=== PATIENT | male | born 1965 | race Caucasian/White ===

== ENCOUNTER 2025-06-13 10:04 | Observation (INO) ==
[2025-06-13] MEDS: ONDANSETRON INJ 2 MG/ML 2 ML VIAL IV STA (10:38)
[2025-06-13] MEDS: MoRPHine SULFATE 10 MG/ML CARP/VIAL IV STA (10:38)
[2025-06-13] MEDS: SODIUM CHLORIDE 0.9% 1,000 ML IV SCH ×2 (10:38→14:46)
--- NOTE | 2025-06-13 10:39 | Emergency Department Note ---
History of Present Illness General Chief complaint: Abdominal Pain Stated complaint: ABD PAIN SEVERE, POSSIBLE BOWEL BLOCKAGE Time Seen by Provider: 06/13/25 10:20 History of Present Illness Maximum Pain Intensity: 9 Patient is a 59-year-old male with past medical history significant for BPH, hypertension, asthma, and history of exploratory laparotomy, who presents to the emergency department for evaluation of abdominal pain, nausea and vomiting x 4 hours. Patient states that he woke at around 0600 today with a "gas-like" pain in his mid abdomen. He was nauseous. His symptoms progressively worsened as the morning went on. He vomited once around 0930, but it was a small amount. He has tried sipping on Gatorade this morning, but has not had anything to eat. He did not take any medication for pain which he currently rates a 9/10. He reports a history of an exploratory laparotomy for trauma many years ago. He had a subsequent bowel obstruction a couple of years ago that cleared on its own per the patient, he was taken care of at [facility] at that time. He started vomiting in triage when they tried to check his oral temperature. It was a large volume per nursing staff. No chato blood. He had a normal bowel movement yesterday afternoon. He is not passing gas at this time. No urinary symptoms. Denies any chest pain or shortness of breath. He states that this does feel similar to the bowel obstruction he had a couple of years ago. Home Medications Medication Instructions Recorded Confirmed Type Heartburn 0 mg PO DAILY PRN Heartburn 06/13/25 06/13/25 History albuterol sulfate 90 mcg/actuation 2 inh inhalation Q4H PRN cough/sob 06/13/25 06/13/25 History aerosol inhaler ibuprofen 0 mg PO DAILY PRN Pain 06/13/25 06/13/25 History lisinopril 1 tab PO DAILY 06/13/25 06/13/25 History tamsulosin 0.4 mg capsule 0.4 mg PO DAILY 06/13/25 06/13/25 History Allergies Allergy/AdvReac Type Severity Reaction Status Date / Time No Known Allergies Allergy Verified 06/13/25 10:32 Past Med/Surg History Problem List (Updated 06/13/25 @ 17:42 by Alana Ferguson) Hypertension Small bowel obstruction (Acute) Ventral hernia (Acute) Medical History Asthma BPH (benign prostatic hyperplasia) Hypertension Surgical History History of knee surgery H/O exploratory laparotomy Social History Smoking Status: Never smoker Second Hand Exposure: No; Do You Dip or Chew Tobacco: No; Tobacco Cessation Education Requested by Patient: No Hx Alcohol Use: Yes Alcohol type: beer Hx Substance Use: No Preferred Language: Danish Communication Ability: Effective Hydro Excavation Operator Required: No Beliefs That Will Affect Care: None Current Living Situation: Spouse Other Information That Helps Us Care for You: No Feels Safe at Home: Yes Safety Concerns: Feels Safe At This Time Assistive Devices: Glasses Review of Systems A total of 10 systems reviewed and were otherwise negative Physical Exam Vital Signs Vital Signs - 24 hr 06/13/25 10:13 06/13/25 10:28 06/13/25 10:30 Temperature 36.4 C L Temperature Source Oral Pulse Rate 66 76 Pulse Rate [Right Finger] 67 Pulse Rhythm [Right Finger] Regular Pulse Strength [Right Finger] Normal Respiratory Rate 22 38 H Respiratory Effort / Characteristics Non-Labored Spontaneous Non-Labored Respiratory Depth Normal Normal Respiratory Pattern Regular Blood Pressure 143/89 H Blood Pressure [Right Arm] Blood Pressure Mean 107 Blood Pressure Mean [Right Arm] Blood Pressure Position [Right Arm] Pulse Oximetry 95 Oxygen Delivery Method Room Air Sepsis Recent Fever Within 48 Hours No Sepsis New/Unexplained Change in Mental Status No Sepsis Action Taken by Nursing No Action Required 06/13/25 10:44 06/13/25 12:51 Temperature Temperature Source Pulse Rate Pulse Rate [Right Finger] 63 Pulse Rhythm [Right Finger] Regular Pulse Strength [Right Finger] Normal Respiratory Rate 18 Respiratory Effort / Characteristics Non-Labored Respiratory Depth Normal Respiratory Pattern Regular Blood Pressure Blood Pressure [Right Arm] 128/82 Blood Pressure Mean Blood Pressure Mean [Right Arm] 97 Blood Pressure Position [Right Arm] Lying Pulse Oximetry 96 97 Oxygen Delivery Method Room Air Room Air Sepsis Recent Fever Within 48 Hours Sepsis New/Unexplained Change in Mental Status Sepsis Action Taken by Nursing CONSTITUTIONAL: Patient is a tremulous, uncomfortable 59-year-old male who is awake and alert and laying semiupright on the gurney in moderate distress due to his stated complaint. EYES: Pupils equal, round, reactive to light and accommodation. EOMs intact without nystagmus. Sclera are anicteric. ENT: Tympanic membranes intact, with normal landmarks. External canals are clear. Oral and nasopharynx are clear. Mucous membranes are moist, no lesions, tongue and gums appear normal. CARDIOVASCULAR: Regular rate and rhythm. Peripheral pulses easily palpable. RESPIRATORY: Breath sounds equal and clear to auscultation. ABDOMEN: Well-healed midline surgical scar, from xiphoid to suprapubic region. Bowel sounds are hypoactive x 4 quadrants. The abdomen is tympanic to percussion throughout, moderately distended, and tender to palpation throughout the entire abdomen. There is voluntary guarding throughout. INTEGUMENTARY: No lesions or rash, normal skin turgor. LYMPH: No lymphadenopathy. Course Course The patient was seen and assessed as above. External medical records are viewed. He presents to the emergency department for evaluation of acute abdominal pain, nausea, and vomiting with a history of a small bowel obstruction. IV lock was initiated. Laboratory studies collected including CBC with differential, CMP and lipase. He was hydrated with normal saline solution and medicated with morphine 6 mg and Zofran 4 mg IV. He was observed on the cardiac cath lab radiology technologist. Acute abdominal series and CT scan of the abdomen and pelvis with IV contrast were obtained. Diagnostics, as interpreted by me: Laboratory studies: Markedly elevated white count at 21,000 with left shift noted. No anemia. No significant electrolyte imbalance, no OREN. Nonfasting glucose is elevated. No transaminitis. Lipase is normal. Cardiac monitoring: An order was placed for continuous cardiac monitoring. The monitor shows a NSR at a rate of 65 per my interpretation. Imaging studies: Acute abdominal series notes the chest is clear. Nonobstructive abdominal bowel gas pattern. CT scan of the abdomen and pelvis with IV contrast is concerning for a small bowel obstruction with a transition zone just below a small ventral hernia, attaining a small bowel loop. The patient was reassessed. Laboratory studies and CT scan findings were reviewed with him. is at the bedside. Patient looks markedly improved, he reports he is no longer nauseous, and pain is almost completely resolved. Given findings, I did recommend consultation with general surgery and he was agreeable. General surgery CAMILO's, Cydney Cleveland PA-C/TOBI Perez. Please refer to their surgical consultation. They were reassured that they were able to reduce the patient's hernia in the ED, but still recommended observation/admission to ensure resolution of symptoms, and to follow labs. Patient was agreeable to this. assurance senior manager insurance was made aware of general surgery plans. Chronic conditions affecting care: Hypertension Differential diagnosis: GERD, gastritis, esophagitis, peptic ulcer disease, biliary pathology, bowel obstruction, perforation, abscess, mass or malignancy, infectious/inflammatory colitis/enteritis, foodborne illness, among others. Administered Medications Sodium Chloride (Nss) 1,000 mls @ 100 mls/hr IV .Q10H CHANTEL Stop: 06/16/25 14:19 Last Admin: 06/13/25 14:46 Dose: 100 mls/hr Documented By: Discontinued Medications Sodium Chloride (Nss) 1,000 mls @ 999 mls/hr IV .Q1H1M CHANTEL Stop: 06/13/25 11:32 Last Infusion: 06/13/25 13:07 Dose: Infused Documented By: Admin: 06/13/25 10:38 Dose: 999 mls/hr Documented By: YULISA Ioversol (Optiray 320 100ml) 94 ml IV ONCE ONE Stop: 06/13/25 11:48 Last Admin: 06/13/25 11:47 Dose: 94 ml Documented By: LOU Morphine Sulfate (Morphine Sulfate 10 Mg/Ml Carp/Vial) 6 mg IV NOW STA Stop: 06/13/25 10:33 Last Admin: 06/13/25 10:38 Dose: 6 mg Documented By: YULISA Ondansetron HCl (Ondansetron Inj 2 Mg/Ml 2 Ml Vial) 4 mg IV NOW STA Stop: 06/13/25 10:33 Last Admin: 06/13/25 10:38 Dose: 4 mg Documented By: YULISA Medical Decision Making Differential Diagnosis See ED course. Medical Records Attestation: I reviewed the patient's medical records. Home Medications Current Medication List: was personally reviewed by me Laboratory Data Attestation: I reviewed the patient's lab results. 06/13/25 10:26 06/13/25 10:26 Lab Results 06/13/25 Range/Units 10:26 WBC 20.97 H (4.8-10.8) K/ul RBC 5.33 (4.70-6.10) M/uL Hgb 17.3 (14.0-18.0) g/dl Hct 49.5 (42.0-52.0) % MCV 92.9 (80.0-100.0) fL MCH 32.5 (25.0-34.0) pg MCHC 34.9 (32.0-36.0) g/dL RDW Std Deviation 41.4 (36.4-46.3) fL RDW Coeff of Rosa Maria 12.1 (11.5-14.5) % Plt Count 330 (130-400) K/uL MPV 9.9 (9.4-12.4) fL Immature Gran % (Auto) 0.4 % Neut % (Auto) 80.9 % Lymph % (Auto) 12.4 % [place] % (Auto) 4.6 % Eos % (Auto) 1.1 % Baso % (Auto) 0.6 % Neut # (Auto) 16.94 H (1.40-6.50) K/uL Lymph # (Auto) 2.61 (1.20-3.40) K/uL [place] # (Auto) 0.96 H (0.11-0.59) K/uL Eos # (Auto) 0.24 (0.00-0.50) K/uL Baso # (Auto) 0.13 (0.00-0.20) K/uL Immature Gran # (Auto) 0.09 (0.01-0.20) K/uL Sodium 138 (136-145) mmol/L Potassium 4.3 (3.5-5.1) mmol/L Chloride 96 L (98-107) mmol/L Carbon Dioxide 27 (21-32) mmol/L Anion Gap 15 H (3-11) BUN 17 (6-23) mg/dl Creatinine 1.28 (0.6-1.4) mg/dl Est Cr Clr Drug Dosing Not Reportable eGFR 65.28 BUN/Creatinine Ratio 13.3 (10-20) Glucose 174 H (70-99(Fasting)) mg/dl Calcium 11.5 H (8.6-10.3) mg/dl Total Bilirubin 0.9 (0.2-1.0) mg/dl AST 20 (13-39) U/L ALT 14 (7-52) U/L Alkaline Phosphatase 66 (34-104) U/L Total Protein 9.7 H (6.0-8.3) gm/dl Albumin 5.0 (3.4-5.0) gm/dl Globulin 4.7 H (2.5-4.0) gm/dl Albumin/Globulin Ratio 1.1 (0.9-2) Lipase 37 (11-82) U/L Imaging Data Attestation: I personally reviewed and interpreted this imaging study as follows: Radiologist's Impression: Abdomen/Pelvis CT 06/13/25 10:[address] WITH IV CONTRAST CT DOSE: 1059.03 mGy.cm HISTORY: EVAL SBO TECHNIQUE: Multiaxial CT images of the abdomen and pelvis were performed following the IV administration of 90 cc of Optiray, A dose lowering technique was utilized adhering to the principles of ALARA. COMPARISON STUDY: None FINDINGS: ABDOMEN: There are a few small splenic cysts. Liver, gallbladder, spleen, pancreas, and adrenal glands are otherwise unremarkable. Kidneys show no hydronephrosis or calculi. There are moderate atherosclerotic calcifications. No abdominal aortic aneurysm. Pelvis: Prostate is minimally enlarged. Urinary bladder is nondistended. There is a small ventral hernia just above the umbilicus which contains small bowel. The proximal to mid small bowel is dilated up to 4 cm diameter. Mid to distal small bowel is nondilated. Transition zone is at the mid small bowel anterior pelvis just below the ventral hernia series 3 image 242 and series 300 image 22. The stomach is distended with retained fluid. The colon is nondilated. No free fluid, free air, or abscess. No enlarged adenopathy. Osseous structures: No acute osseous findings seen. There is degenerative disc disease at the lower lumbar spine. IMPRESSION: Small bowel obstruction with transition zone just below a small ventral hernia which contains a small bowel loop. ACT 112: Negative or not required by law. The above report was generated using voice recognition software. It may contain grammatical, syntax or spelling errors. Electronically signed by: Tate Roth M.D. 06/13/2025 12:10 PM Chest/Abdomen X-ray 06/13/25 10:32 PA CHEST WITH ABDOMINAL SERIES CLINICAL HISTORY: Generalized abdominal pain. Vomiting FINDINGS: A PA chest radiograph is compared to study dated 03/06/2016. The cardiomediastinal silhouette is unremarkable noting atherosclerotic calcification of the thoracic aorta. There is mild chronic elevation of left hemidiaphragm. The lungs and pleural spaces are clear. No pneumothorax is seen. The bony thorax is grossly intact. A 2.5 cm right paraspinous density was not clearly seen in 2016 and appears calcified. Supine and erect abdominal radiographs are obtained. No prior studies are available for comparison at the time of dictation. There is a nonobstructed abdominal bowel gas pattern. Moderate fecal retention is seen throughout the colon. No evidence of intraperitoneal free air is seen. There are no abnormal abdominal calcifications. There are numerous pelvic phleboliths. The lumbosacral spine and bony pelvis appear intact. There is mild thoracolumbar scoliosis. IMPRESSION: 1. No active disease in the chest. 2. Nonobstructed abdominal bowel gas pattern. 3. A 2.5 cm calcified appearing right paraspinous density in the mid thoracic region was not clearly seen on the 2016 examination. This may represent osteophytosis. Correlation with a chest CT is recommended for further assessment. ACT 112: Negative or not required by law. Electronically signed by: Juventino Jewell M.D. 06/13/2025 11:45 AM MDM Narrative See ED course. Impression & Plan Small bowel obstruction, Ventral hernia Discharge Plan Visit Data Chief Complaint: Abdominal Pain Stated Complaint: ABD PAIN SEVERE, POSSIBLE BOWEL BLOCKAGE ED Provider: Duane Shaw ED Midlevel Provider: Alana Ferguson Discharge Problem: Small bowel obstruction, Ventral hernia Patient Disposition: Admitted As Inpatient Condition: Fair Discharge Instructions Interventions: ED Discharge Assessment Last Done: 06/13/25 14:06
[2025-06-13 11:00] LABS: Hematocrit (blood only) 49.5 % (42.0-52.0); Hemoglobin 17.3 g/dl (14.0-18.0); Immature Granulocytes # (auto) 0.09 K/uL (0.01-0.20); Immature Granulocytes % (auto) 0.4 %; Mean Corpuscular Hemoglobin 32.5 pg (25.0-34.0); Mean Corpuscular Volume 92.9 fL (80.0-100.0); Platelet Count 330 K/uL (130-400); RDW Standard Deviation 41.4 fL (36.4-46.3); Red Blood Count 5.33 M/uL (4.70-6.10); White Blood Count 20.97 K/ul (4.8-10.8)
[2025-06-13 11:22] LABS: Alanine Aminotransferase 14 U/L (7-52); Albumin Globulin Ratio 1.1 (0.9-2); Alkaline Phosphatase 66 U/L (34-104); Anion Gap 15 (3-11); Bilirubin,Total 0.9 mg/dl (0.2-1.0); Blood Urea Nitrogen 17 mg/dl (6-23); Calcium 11.5 mg/dl (8.6-10.3); Carbon Dioxide 27 mmol/L (21-32); Chloride 96 mmol/L (98-107); Globulin 4.7 gm/dl (2.5-4.0); Glucose 174 mg/dl (70-99(Fasting)); Lipase 37 U/L (11-82); Potassium 4.3 mmol/L (3.5-5.1); Sodium 138 mmol/L (136-145); Total Protein 9.7 gm/dl (6.0-8.3)
[2025-06-13] MEDS: OPTIRAY 320 100ml IV ONE (11:47)
--- NOTE | 2025-06-13 11:48 | XRay Report ---
PA CHEST WITH ABDOMINAL SERIES CLINICAL HISTORY: Generalized abdominal pain. Vomiting FINDINGS: A PA chest radiograph is compared to study dated 03/06/2016. The cardiomediastinal silhouette is unrema rkable noting atherosclerotic calcification of the thoracic aorta. There is mild chronic elevation of left hemidiaphragm. The lungs and pleural spaces are clear. No pneumothorax is seen. The bony thorax is grossly intact. A 2.5 cm right paraspinous density was not clearly seen in 2016 and appears calci fied. Supine and erect abdominal radiographs are obtained. No prior studies are available for comparison at the time of dictation. There is a nonobstructed abdominal bowel gas pattern. Moderate fecal retentio n is seen throughout the colon. No evidence of intraperitoneal free air is seen. There are no abnorma l abdominal calcifications. There are numerous pelvic phleboliths. The lumbosacral spine and bony pel vis appear intact. There is mild thoracolumbar scoliosis. IMPRESSION: 1. No active disease in the chest. 2. Nonobstructed abdominal bowel gas pattern. 3. A 2.5 cm calcified appearing right paraspinous density in the mid thoracic region was not clearly seen on the 2016 examination. This may represent osteophytosis. Correlation with a chest CT is recomm ended for further assessment. ACT 112: Negative or not required by law. Electronically signed by: Juventino Jewell M.D. 06/13/2025 11:45 AM
--- NOTE | 2025-06-13 12:11 | CT Scan Report ---
ABDOMEN AND PELVIS CT WITH IV CONTRAST CT DOSE: 1059.03 mGy.cm HISTORY: EVAL SBO TECHNIQUE: Multiaxial CT images of the abdomen and pelvis were performed following the IV administrat ion of 90 cc of Optiray, A dose lowering technique was utilized adhering to the principles of ALARA. COMPARISON STUDY: None FINDINGS: ABDOMEN: There are a few small splenic cysts. Liver, gallbladder, spleen, pancreas, and adrenal gland s are otherwise unremarkable. Kidneys show no hydronephrosis or calculi. There are moderate atheroscl erotic calcifications. No abdominal aortic aneurysm. Pelvis: Prostate is minimally enlarged. Urinary bladder is nondistended. There is a small ventral her jay just above the umbilicus which contains small bowel. The proximal to mid small bowel is dilated u p to 4 cm diameter. Mid to distal small bowel is nondilated. Transition zone is at the mid small brock l anterior pelvis just below the ventral hernia series 3 image 242 and series 300 image 22. The stoma ch is distended with retained fluid. The colon is nondilated. No free fluid, free air, or abscess. No enlarged adenopathy. Osseous structures: No acute osseous findings seen. There is degenerative disc disease at the lower l umbar spine. IMPRESSION: Small bowel obstruction with transition zone just below a small ventral hernia which cont ains a small bowel loop. ACT 112: Negative or not required by law. The above report was generated using voice recognition software. It may contain grammatical, syntax o r spelling errors. Electronically signed by: Tate Roth M.D. 06/13/2025 12:10 PM
[2025-06-13] MEDS ORDERED: MoRPHine SULFATE 4 MG/ML 1 ML CARP\\VIAL IV PRN (12:57)
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
[2025-06-13] MEDS ORDERED: ACETAMINOPHEN 325 MG TAB PO PRN (14:20)
[2025-06-14 07:36] LABS: Anion Gap 7.0 (3-11); Blood Urea Nitrogen 16.0 mg/dl (6-23); Calcium 8.7 mg/dl (8.6-10.3); Carbon Dioxide 25.0 mmol/L (21-32); Chloride 105.0 mmol/L (98-107); Creatinine Clr Calc Pharmacy 95.6 ml/min; Glucose 79.0 mg/dl (70-99(Fasting)); Potassium 4.2 mmol/L (3.5-5.1); Sodium 137.0 mmol/L (136-145)
--- NOTE | 2025-06-14 07:48 | Surgery Progress Note ---
Date of Service June 14, 2025 Assessment & Plan (1) Ventral hernia: Plan: Patient here w/ SBO 2/2 ventral hernia Blood work pending this AM [place] reduced in the ER yesterday during our evaluation and pt was feeling much better. we admitted him for overnight observation. unfortunately overnight his pain began to return and is associated with burping. His abdominal binder and kerlex gauze came off due to him incidentally removing it at night while he sleeps. His abdomen is soft, but tender in the area where hernia is located. I again can palpate the defect Given overnight pt did not stay pain free and he has symptoms including lack of bowel function and + burping we discussed entertaining surgical intervention at this point for ventral hernia repair. he is agreeable If + vomiting today prior to OR can consider NGT placement but okay to hold off for now Dr. Taylor will be by to obtain consent (2) Small bowel obstruction: Admission and Anticipated Discharge Date Admission Date: June 13, 2025 Supervising Physician Co-Signing Physician Notes While he states the hernia has seemed to stay reduced, he did develop increased pain and significant tenderness at the area below the epigastric hernia. On imaging, there appears to be an area suspicious for a tiny Richters hernia at this location at the umbilicus. Today, planning for surgery. Diagnostic laparoscopy for possible BERENICE and other necessary interventions, bowel exploration, open primary ventral hernia repair of these two hernias. It has been explained to him that a mesh will not be used at this time and this is not addressing the full incision, just the area that appears to have been obstructed on admission and the tiny area that appears to have pinched off bowel just below this. If he has recurrence and an elective setting is possible, would advise a more formal repair at that time to address the full incision and possible mesh. The details of all of this have been explained to him including the risks, benefits and alternatives. He expressed understanding of this explanation and consent has been obtained. Subjective Patient reports worsening abdominal pain overnight associated with some burping. No bowel function noted. Feels like the pain is returning compared to when he was feeling better yesterday. Physical Exam Physical Exam: trying to rest, but awake/alert, no distress Gastrointestinal (Abdomen): Inspection/Auscultation: + abdominal surgical scar (large midline scar); abdomen not distended + tenderness to palpation in the supra-u mbilical region and off to the left midline abdomen. I can palpate the defect Results & Data Vital Signs (Past 12 Hours) Vital Signs Temp Pulse Resp BP Pulse Ox O2 Del Method 06/14/25 07:03 98.2 F 66 16 149/78 H 96 Room Air PG Care Time/CCT Total # of Minutes Spent Total Time Spent with Patient: Total time spent is greater than 50% in coordination of care (as documented) at patient's floor/unit and/or counseling patient: Coding Level of Care Code 90701 SUB INP/OBS CARE 12/23MIN Diagnoses Ventral hernia K43.9 Small bowel obstruction K56.609
[2025-06-14 07:50] LABS: Hematocrit (blood only) 40.3 % (42.0-52.0); Hemoglobin 13.6 g/dl (14.0-18.0); Immature Granulocytes # (auto) 0.05 K/uL (0.01-0.20); Immature Granulocytes % (auto) 0.5 %; Mean Corpuscular Hemoglobin 31.7 pg (25.0-34.0); Mean Corpuscular Volume 93.9 fL (80.0-100.0); Platelet Count 204 K/uL (130-400); RDW Standard Deviation 42.6 fL (36.4-46.3); Red Blood Count 4.29 M/uL (4.70-6.10); White Blood Count 10.77 K/ul (4.8-10.8)
[2025-06-14] MEDS: ONDANSETRON INJ 2 MG/ML 2 ML VIAL IV PRN (08:54)
[2025-06-14] MEDS: MoRPHine SULFATE 2 MG/ML CARP IV PRN (08:57)
[2025-06-14] MEDS ORDERED: DEXAMETHASONE SOD INJ 4 MG/ML VIAL ONE (10:43)
[2025-06-14] MEDS ORDERED: MIDAZOLAM HCL 1 MG/ML 2ML VIAL ONE (10:43)
[2025-06-14] MEDS ORDERED: ONDANSETRON INJ 2 MG/ML 2 ML VIAL ONE (10:43)
[2025-06-14] MEDS ORDERED: PROPOFOL IV EMULSION 10 MG/ML 20 ML VIAL IV ONE (10:43)
[2025-06-14] MEDS ORDERED: LIDOCAINE 2% 2 ML VIAL/AMP(20MG/ML) INFIL ONE (10:43)
[2025-06-14] MEDS ORDERED: ROCURONIUM BROMIDE 10 MG/ML 5 ML VIAL IV ONE ×2 (10:44)
--- NOTE | 2025-06-14 12:16 | Anesthesiology Consultation ---
Date of Service June 14, 2025 Assessment & Plan Chart Review Chart Review: Acceptable Risk for Surgery Consults Requested none History Surgery Operation Date: 06/14/25 08:00 Proposed Procedures p Open Ventral Hernia Repair - Didier Taylor DO s Diagnostic Laparoscopy - Didier Taylor DO Height/Weight Height: 5 ft 10 in Weight: 77.6 kg Allergies Allergy/AdvReac Type Severity Reaction Status Date / Time No Known Allergies Allergy Verified 06/13/25 10:32 Medications Home Medications Medication Instructions Recorded Confirmed Last Taken Heartburn 0 mg PO DAILY PRN Heartburn 06/13/25 06/13/25 Unknown albuterol sulfate 90 mcg/actuation 2 inh inhalation Q4H PRN cough/sob 06/13/25 06/13/25 Unknown aerosol inhaler ibuprofen 0 mg PO DAILY PRN Pain 06/13/25 06/13/25 Unknown lisinopril 1 tab PO DAILY 06/13/25 06/13/25 Unknown tamsulosin 0.4 mg capsule 0.4 mg PO DAILY 06/13/25 06/13/25 Unknown Active Medications Generic Name Dose Route Start Last Admin Trade Name Freq PRN Reason Stop Dose Admin Sodium Chloride 1,000 mls @ 100 mls/hr 06/13/25 14:20 06/14/25 10:43 Nss IV 06/16/25 14:19 100 mls/hr .Q10H CHANTEL Administration Morphine Sulfate 2 mg 06/13/25 14:20 06/14/25 08:57 Morphine Sulfate 2 Mg/Ml Carp IV 06/27/25 14:19 2 mg Q4H PRN Administration Moderate Pain (Scale 4, 5, 6) Ondansetron HCl 4 mg 06/13/25 14:20 06/14/25 08:54 Ondansetron Inj 2 Mg/Ml 2 Ml Vial IV 07/13/25 14:19 4 mg Q6H PRN Administration Nausea And Vomiting NPO Date Last Intake of Fluids: 06/13/25 Time Last Intake of Fluids: 21:00 Date Last Intake of Solids: 06/12/25 Time Last Intake of Solids: 18:30 Past Medical History Medical History Asthma BPH (benign prostatic hyperplasia) Hypertension Past Surgical History Surgical History History of knee surgery H/O exploratory laparotomy Social History Smoking Status: Never smoker Do You Dip or Chew Tobacco: No Hx Alcohol Use: Yes Alcohol type: beer alcohol intake frequency: 3 or more drinks per day Hx Substance Use: No Physical Exam Vital Signs Last Vital Signs Temp 37 C 06/14/25 11:25 Pulse 86 06/14/25 11:25 Resp 18 06/14/25 11:25 BP 159/98 H 06/14/25 11:25 Pulse Ox 97 06/14/25 11:25 O2 Del Method Room Air 06/14/25 11:25 Testing Laboratory Results 06/14/25 05:53 06/14/25 05:53
[2025-06-14] MEDS ORDERED: PROMETHAZINE HCL 6.25 MG in SODIUM CHLORIDE 0.9% 50 ML IV PRN (12:17)
[2025-06-14] MEDS ORDERED: ONDANSETRON INJ 2 MG/ML 2 ML VIAL IV PRN (12:17)
[2025-06-14] MEDS ORDERED: ATROPINE SULFATE 0.1 MG/ML 10ML SYR IV PRN (12:17)
[2025-06-14] MEDS ORDERED: HYDROmorphone INJ 2 MG/ML SYR/VIAL IV PRN (12:17)
[2025-06-14] MEDS: PIPERACILLIN/TAZOBACTAM 4.5 GM/100 ML BAG IV ONE (12:17)
[2025-06-14] MEDS ORDERED: METOPROLOL TARTRATE 1 MG/ML VIAL IV ONE ×2 (12:52)
[2025-06-14] MEDS ORDERED: SUGAMMADEX SODIUM 200 MG/2 ML VIAL IV ONE (13:01)
[2025-06-14] MEDS ORDERED: ePHEDrine sulfate 50 MG/5 ML SYR ONE (13:05)
[2025-06-14] MEDS ORDERED: GLYCOPYRROLATE 0.2 MG/ML VIAL ONE (13:06)
[2025-06-14] MEDS ORDERED: PHENYLEPHRINE 100MCG/ML 5ML SYR ONE (13:07)
[2025-06-14] MEDS: BUPIVACAINE/EPINEPHRINE 0.5% MPF 1:200,000 30 ML VIAL ONE (14:05)
[2025-06-14] MEDS: BACITRACIN OINT 14 GM TUBE ONE (14:16)
--- NOTE | 2025-06-14 14:21 | Operative Report ---
PG Post Operative Report Pre & Post Diagnosis Operation Date: 06/14/25 08:00 Pre-Op Diagnosis: Small Bowel Obstruction, Ventral Hernia Post-Op Diagnosis: Small Bowel Obstruction, Ventral Hernia I identified the patient and participated in the time-out.: Yes Procedure Operation Date: 06/14/25 08:00 Actual Procedures p Open Ventral Hernia Repair(Not Applicable) - Didier Taylor DO s Diagnostic Laparoscopy(Not Applicable) - Didier Taylor DO Surgeon Didier Taylor DO Tile Grinder MARLENY Schuster Estimated Blood Loss 3 Findings See Below Extensive adhesions of the anterior abdominal wall containing bowel and omentum. Tiny umbilical hernia containing fat. Epigastric/hernia right upper umbilicus containing nonobstructed appearing bowel and fat. Specimens None Anesthesia Type General Complications No immediate complications Indications Consistent pain at her site noted. Reduced with ongoing obstructive like symptoms. CT imaging revealing potential Pickett's hernia at the time of an umbilical hernia site and transition zone at this location. Description of Procedure The patient was brought back to the operating room placed on the operating table supine position. He was connected to cardiac and oxygen monitoring, supplemental O2 was provided and SCDs were applied to bilateral lower extremities. SCDs were applied to bilateral lower extremities. The patient was administered general anesthesia and a secure airway was established. The abdomen was prepped and draped in typical sterile fashion a timeout was conducte d. Local anesthetic was used anesthetize skin and subcutaneous tissues where the incisions and wound decisions were made with a 15 blade at the midline incision and an 11 blade at the laparoscopic incisions. Intra-abdominal access was gained at the left upper quadrant using a Veress needle and this was confirmed with a saline drop test. CO2 was the patient was initiated and pneumoperitoneum was established with goal pressure 15 mmHg. Once this pressure was reached, a 5 mm trocar was inserted using direct visualization with a 5 mm laparoscope with the view port. 2 additional 5 mm trocars were inserted along the left abdomen. Extensive adhesions were noted centrally behind the prior midline laparotomy incision. Multiple bowel loops and fat were released. Adhesions were lysed from this area to expose a fat-containing tiny umbilical hernia as well as most of the epigastric hernia. CO2 insufflation was discontinued and excess pneumoperitoneum was evacuated. An incision was made around the. Aspect of the umbilicus and above using the prior midline incision scar to expose the epigastric hernia. Lysis of adhesions was undertaken to clear at a good area around the fascia. The umbilical stalk was dissected and lifted away to expose the tiny umbilical hernia which should still contain some fat. Adhesions along the bridging fascia between the 2 hernias were cleared. Small amount of bleeding was controlled with gentle cautery. Care was taken throughout the process to avoid injury to the bowel. No obvious bowel injury was noted during the lysis of adhesions. ED fascia at the epigastric incision was closed with a running 1-0 PDS suture. At that time the umbilical hernia was then also closed with a 1-0 PDS suture. The wound was irrigated and dried. Additional local anesthetic was used to anesthetize the subcutaneous tissues in the midline incision. The skin was approximated using sagar at all incisions. The abdomen was wiped clean with a saline soaked lap pad and dried. The incisions were further dressed with bacitracin, Telfa and gauze secured in place with tape. The patient tolerated the procedure well. He was awakened from anesthesia, the secure airway was removed and he was transferred to recovery in stable condition. I attest to the content of the Intraoperative Record and any orders documented therein. Any exceptions are noted below.
--- NOTE | 2025-06-14 15:04 | Anesthesiology Progress Note ---
Date of Service June 14, 2025 Anesthesia Post Procedure Vital Signs Vital Signs: Temp Pulse Pulse Resp BP Pulse Ox O2 Del Method 06/14/25 14:50 84 18 135/86 97 Room Air 06/14/25 14:40 36.4 C L 82 16 119/92 96 Room Air 06/14/25 14:30 93 H 25 H 135/79 96 Room Air 06/14/25 14:20 36.3 C L 89 22 139/87 100 Oxymask 06/14/25 11:25 37 C 86 18 159/98 H 97 Room Air 06/14/25 07:03 36.8 C 66 16 149/78 H 96 Room Air 06/13/25 19:24 37.3 C 62 18 157/86 H 97 Room Air O2 Flow Rate 06/14/25 14:50 06/14/25 14:40 06/14/25 14:30 06/14/25 14:20 10 06/14/25 11:25 06/14/25 07:03 06/13/25 19:24 Pain Intensity Abdomen: Pain Intensity: 10 Transfer of Care Handoff Completed per policy Notes Mental Status: alert / awake / arousable and participated in evaluation Nausea / Vomiting: adequately controlled Pain: adequately controlled Airway Patency, RR, SpO2: stable & adequate BP & HR: stable & adequate Hydration State: stable & adequate Anesthetic Complications: no major complications apparent and Pt Satisfied with anesthetic care
[2025-06-14] MEDS ORDERED: MoRPHine SULFATE 2 MG/ML CARP IV PRN (15:06)
[2025-06-14] MEDS ORDERED: MoRPHine SULFATE 4 MG/ML 1 ML CARP\\VIAL IV PRN (15:06)
[2025-06-14] MEDS: ACETAMINOPHEN 1,000 MG/100 ML VIAL IV PRN (18:44)
[2025-06-14 23:13] VITALS: TEMP 98.1
[2025-06-15 03:57] VITALS: RESP 18
[2025-06-15 07:10] VITALS: BP 148/81; O2SAT 97
[2025-06-15 07:59] LABS: Hematocrit (blood only) 38.2 % (42.0-52.0); Hemoglobin 12.8 g/dl (14.0-18.0); Immature Granulocytes # (auto) 0.05 K/uL (0.01-0.20); Immature Granulocytes % (auto) 0.5 %; Mean Corpuscular Hemoglobin 31.4 pg (25.0-34.0); Mean Corpuscular Volume 93.9 fL (80.0-100.0); Platelet Count 191 K/uL (130-400); RDW Standard Deviation 41.9 fL (36.4-46.3); Red Blood Count 4.07 M/uL (4.70-6.10); White Blood Count 10.49 K/ul (4.8-10.8)
[2025-06-15 08:15] LABS: Anion Gap 7.0 (3-11); Blood Urea Nitrogen 14.0 mg/dl (6-23); Calcium 8.5 mg/dl (8.6-10.3); Carbon Dioxide 25.0 mmol/L (21-32); Chloride 103.0 mmol/L (98-107); Creatinine Clr Calc Pharmacy 106.5 ml/min; Glucose 86.0 mg/dl (70-99(Fasting)); Potassium 4.2 mmol/L (3.5-5.1); Sodium 135.0 mmol/L (136-145)
--- NOTE | 2025-06-15 09:59 | Surgery Progress Note ---
<Statement entered by Didier Taylor DO - 06/20/25 10:32> I saw and examined this patient. I agree with the plan. Date of Service June 15, 2025 Assessment & Plan (1) S/P repair of ventral hernia: Plan: POD 1 Ventral hernia repair denies n/v tolerating sips/chips requesting clear liquids +flatus , no bm yet , voiding without difficulty ambulating in halls VSS with HTN 148/81, wbc wnl midline dressing with shadowing removed and placed clean gauze and Medipore mild ecchymosis no s/s infection noted will trial clear liquids [facility] covering the weekend Admission and Anticipated Discharge Date Admission Date: June 13, 2025 Subjective expected post surgical discomfort +flatus , has been OOB walking in halls denies n/v , f/c Review of Systems Constitutional: no fever and no chills Respiratory: no dyspnea Cardiovascular: no chest pain Gastrointestinal: + abdominal pain; no nausea and no vomit ing Physical Exam Constitutional: cooperative and comfortable; no acute distress Respiratory: normal respiratory effort; no respiratory distress Cardiovascular: Rate/Rhythm: regular rate Gastrointestinal (Abdomen): Inspection/Auscultation: + abdominal surgical incision (sagar midline and port sites); abdomen not distended Percussion/Palpation: abdomen soft Psychiatric: A+Ox3, euthymic affect Results & Data Vital Signs (Past 12 Hours) Vital Signs Temp Pulse Pulse Resp BP Pulse Ox O2 Del Method 06/15/25 07:00 98.1 F 76 18 148/81 H 97 Room Air 06/15/25 03:56 98.1 F 60 18 129/78 98 Room Air 06/14/25 23:12 98.1 F 74 16 103/60 96 Room Air Results CBC w Diff Results: RBC 4.07 M/uL (4.70-6.10) L 06/15/25 WBC 10.49 K/ul (4.8-10.8) 06/15/25 Hgb 12.8 g/dl (14.0-18.0) L 06/15/25 Hct 38.2 % (42.0-52.0) L 06/15/25 MCV 93.9 fL (80.0-100.0) 06/15/25 MCH 31.4 pg (25.0-34.0) 06/15/25 MCHC 33.5 g/dL (32.0-36.0) 06/15/25 RDW Standard Deviation 41.9 fL (36.4-46.3) 06/15/25 RDW Coefficient of Variation 12.0 % (11.5-14.5) 06/15/25 Plt Count 191 K/uL (130-400) 06/15/25 MPV 9.8 fL (9.4-12.4) 06/15/25 Neutrophils (%) (Auto) 79.0 % 06/15/25 Lymphocytes (%) (Auto) 9.2 % 06/15/25 Monocytes # (Auto) 1.14 K/uL (0.11-0.59) H 06/15/25 Eosinophils # (Auto) 0.02 K/uL (0.00-0.50) 06/15/25 Immature Granulocyte % (Auto) 0.5 % 06/15/25 Neutrophils # (Auto) 8.30 K/uL (1.40-6.50) H 06/15/25 Lymphocytes # (Auto) 0.96 K/uL (1.20-3.40) L 06/15/25 Monocytes # (Auto) 1.14 K/uL (0.11-0.59) H 06/15/25 Eosinophils # (Auto) 0.02 K/uL (0.00-0.50) 06/15/25 Basophils # (Auto) 0.02 K/uL (0.00-0.20) 06/15/25 Immature Granulocyte # (Auto) 0.05 K/uL (0.01-0.20) 5 PG Care Time/CCT Total # of Minutes Spent Total Time Spent with Patient: Total time spent is greater than 50% in coordination of care (as documented) at patient's floor/unit and/or counseling patient: Coding Level of Care Code 51935 Post Operative Follow-Up Diagnoses S/P repair of ventral hernia Z98.890; Z87.19
[2025-06-15 14:17] VITALS: PULSE 60
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
== END 2025-06-15 14:49 | disposition home or self-care (01) | DRG 337 ==
LOC: ED 10:04 → 3W 13:06 → INTOOBSV 13:06 → 3W 14:06